=== PATIENT | female | born 1995 | race African-American/Black ===

== ENCOUNTER 2020-06-27 02:08 | Emergency (ER) | payer MEDICAID, SELFPAY ==
[~2020-06-27] VITALS: Ht 160 cm; Wt 127.0 kg
[2020-06-27 02:08] VITALS: BP_SYST 145
[2020-06-27] MEDS ORDERED: methylPREDNISolone SOD SUCC/PF 62.5 MG/ML VIAL IVP ONE (02:15)
[2020-06-27] MEDS ORDERED: IPRATROPIUM/ALBUTEROL SULFATE 3 ML AMPUL.NEB (DUONEB) INH ONE ×2 (02:15→02:45)
[2020-06-27] MEDS ORDERED: predniSONE 1 MG TABLET PO ONE (02:45)
[2020-06-27] MEDS ORDERED: PREDNISONE 20 MG TABLET ONE (02:56)
[2020-06-27 03:50] VITALS: BP_SYST 140
== END 2020-06-27 03:50 | disposition home or self-care (01) ==
LOC: SED 02:08
DX: J45.901 Unspecified asthma with (acute) exacerbation (principal)
CPT/HCPCS: 36415; 71045; 81025; 87426; 99284; J7512; J2930